=== PATIENT | male | born 1980 | race African-American/Black ===

== ENCOUNTER 2017-05-27 08:10 | Emergency (ER) | payer BC, OTHER ==
[~2017-05-27] VITALS: Ht 182.9 cm; Wt 79.4 kg
[~2017-05-27 08:10] MED LIST: BACTRIM 400-801 EACH PO; DOXYCYCLINE 10100 MG PO; IBUPROFEN 800800 M1 PO; NORCO 5-325 TA1 EACH PO
[2017-05-27] MEDS ORDERED: NAPROSYN500 MG PO (09:13)
[2017-05-27] MEDS ORDERED: FLEXERIL PO (09:13)
[2017-05-27] MEDS ORDERED: MEDROLDOSEPACK PO (09:13)
[2017-05-27 09:21] VITALS: BP 119/68
== END 2017-05-27 09:22 | disposition home or self-care (01) ==
LOC: ER 08:10
DX: M54.16 Radiculopathy, lumbar region (principal)

== ENCOUNTER 2018-06-29 22:53 | Inpatient (IN) | payer OTHER ==
[~2018-06-29] VITALS: Ht 182.9 cm; Wt 81.6 kg
--- NOTE | ~2018-06-29 | 2DMMODE ---
[facility] [email or web address] [place] [address] 2 D/M-MODE ECHOCARDIOGRAM Name: MARIA ELENA ROJAS Room #: 360-P ADM IN M.R.#: [id number] Admission: 06/30/18 Attend Phys: Carroll Acosta MD Discharge: Date of : 84 Date of Service: 06/30/18 1055 Report #: [id number] THIS REPORT FOR: //name// APPROVED REPORT Study performed: 06/30/2018 09:23:50 EXAM: Comprehensive 2D, Doppler, and color-flow Echocardiogram Patient Location: Echo lab Room #: 360 Status: routine BSA: 2.04 HR: 60 bpm BP: 115/77 mmHg Other Information Study Quality: Good Indications Dizziness and Vertigo Bradycardia 2D Dimensions RVDd: 34.20 mm IVSd: 10.76 (7-11mm) LVOT Diam: 23.79 (18-24mm) LVDd: 43.89 mm PWd: 11.29 (7-11mm) Aortic Root: 35.17 mm IVC: 18.00 mm Volumes Left Atrial Volume (Systole) Single Plane 4CH: 48.92 mL Single Plane 2CH: 31.13 mL LA ESV Index: 21.00 mL/m2 Mitral Valve E/A Ratio: 1.2 MV Decel. Time: 195.22 ms MV E Max Laz.: 0.79 m/s MV A Laz.: 0.65 m/s MV PHT: 56.61 ms IVRT: 115.34 ms Pulmonary Valve PV Peak Laz.: 0.89 m/s PV Peak Gr.: 3.19 mmHg [facility] [address] [place] [address] 2 D/M-MODE ECHOCARDIOGRAM Name: MARIA ELENA ROJAS CHANG Room #: 360-P [facility] IN [facility]#: [id number] Admission: 06/30/18 Attend Phys: Carroll Acosta MD Discharge: Date of : 84 Date of Service: 06/30/18 1055 Report #: [id number] Pulmonary Vein P Vein S: 0.46 m/s P Vein A: 0.32 m/s P Vein D: 0.60 m/s P Vein A Dur.: 138.4 msec P Vein S/D Ratio: 0.77 Tricuspid Valve RAP Estimate: 5.00 mmHg Left Ventricle The left ventricle is normal size. There is normal LV segmental wall motion. There is normal left ventricular wall thickness. The left ventricular systolic function is normal. LVEF is 55-60%. The left ventricular diastolic function is normal. Right Ventricle The right ventricle is normal size. The right ventricular systolic function is normal. Atria The left atrium size is normal. The right atrium size is normal. Aortic Valve The aortic valve is normal in structure. No aortic regurgitation is present. There is no aortic valvular stenosis. Mitral Valve The mitral valve is normal in structure. There is no mitral valve regurgitation noted. No evidence of mitral valve stenosis. Tricuspid Valve The tricuspid valve is normal in structure. There is no tricuspid valve regurgitation noted. Unable to assess PA pressure. Pulmonic Valve The pulmonary valve is normal in structure. Trace pulmonic regurgitation. Great Vessels The aortic root is normal in size. The ascending aorta is normal in size. IVC is normal in size and collapses >50% with inspiration. Pericardium There is no pericardial effusion. [facility] [email or web address] [place] [address] 2 D/M-MODE ECHOCARDIOGRAM Name: NAVID ROJASIM [facility] Room #: 360-P ADM IN M.R.#: [id number] Admission: 06/30/18 Attend Phys: Carroll Acosta MD Discharge: Date of : 84 Date of Service: 06/30/18 1055 Report #: [id number] <Conclusion> The left ventricle is normal size. LVEF is 55-60%. The aortic valve is normal in structure. The mitral valve is normal in structure. The tricuspid valve is normal in structure. There is no tricuspid valve regurgitation noted. Unable to assess PA pressure. The pulmonary valve is normal in structure. Trace pulmonic regurgitation. There is no pericardial effusion. <ELECTRONICALLY SIGNED> By: Tay Resendiz MD 06/30/18 1055 54 54 Tay Resendiz MD /INF
--- NOTE | ~2018-06-29 | EKG ---
[address] [place] [address] ELECTROCARDIOGRAM REPORT Name: MARIA ELENA ROJAS CHANG Room #: 360- ADM IN M.R.#: [id number] Admission: 06/30/18 Attend Phys: Carroll Acosta MD Discharge: Date of : 84 Report #: [id number] THIS REPORT FOR: //name// ED Test Date: 2018-06-30 Test Time: 00:07:04 Pat Name: MARIA ELENA ROJAS Department: Room: 360 Gender: M Director Diabetes: ROSIBEL : 1980 Requested By: Jean-Pierre Blood Order Number: [id number] MD: Korey Jorge Measurements Intervals [place] Rate: 53 P: 66 [place]: 213 QRS: 41 QRSD: 100 T: 18 QT: 429 QTc: 403 Interpretive Statements Sinus rhythm ST elev, probable normal early repol pattern Compared to ECG 10/29/2007 15:37:57 No significant change was found Electronically Signed On 06-30-2018 7:33:15 CDT by Korey Jorge [email or web address] <ELECTRONICALLY SIGNED> By: Korey Jorge MD, [facility] 10/07/08 733 Korey Jorge MD, [facility] /EPI
[~2018-06-29 22:53] MED LIST changes: +FLEXERIL PO; +MEDROLDOSEPACK PO; +NAPROSYN500 MG PO
[2018-06-29 23:00] VITALS: BP 119/82
[2018-06-30] VITALS (7 sets, daily range): BP systolic 115–126; BP diastolic 67–81
[2018-06-30 00:27] LABS: ABSOLUTE NEUTROPHILS 2.3 thou/uL (1.4-8.2); BASOPHILS 0.7 % (0.0-2.0); EOSINOPHILS 1.4 % (0.0-3.0); HEMATOCRIT 45.5 % (42.0-52.0); HEMOGLOBIN 16.1 gm/dL (14.0-18.0); LYMPHOCYTES 40.8 % (24.0-44.0); MCH 33.2 pg (26.0-34.0); MCHC 35.4 g/dL (28.0-37.0); MCV 93.8 fL (80.0-100.0); PLATELET COUNT 226 thou/uL (150-400); POLYS 48.1 % (36.0-66.0); RBC 4.84 mil/uL (4.50-6.00); WBC 4.9 thou/uL (4.0-11.0)
[2018-06-30 00:36] LABS: ANION GAP 8 mmol/L (7-16); BUN 11 mg/dL (7-18); CALCIUM 9.2 mg/dL (8.5-10.1); CHLORIDE 102 mmol/L (98-107); CO2 29 mmol/L (21-32); CREATININE 1.1 mg/dL (0.7-1.3); GLUCOSE 112 mg/dL (74-106); SODIUM 139 mmol/L (136-145)
[2018-06-30 00:45] LABS: ALBUMIN 4.2 g/dL (3.4-5.0); MAGNESIUM 1.9 mg/dL (1.8-2.4); SGOT 26 U/L (15-37); SGPT 46 U/L (30-65); TOTAL BILIRUBIN 0.9 mg/dL (<0.1-1.0); TROPONIN-I <0.06 ng/mL (<0.06)
[2018-06-30 11:42] LABS: URINE BILIRUBIN NEGATIVE (Negative); URINE BLOOD NEGATIVE (Negative); URINE CLARITY CLEAR; URINE COLOR YELLOW; URINE GLUCOSE-RANDOM* NEGATIVE (Negative); URINE KETONES NEGATIVE (Negative); URINE LEUKOCYTES NEGATIVE (Negative); URINE NITRITE NEGATIVE (Negative); URINE PROTEIN (DIPSTICK) NEGATIVE (Negative); URINE SPECIFIC GRAVITY 1.015 (1.005-1.035); URINE UROBILINOGEN 0.2 E.U./dl (0.2-1.0)
== END 2018-06-30 13:44 | disposition home or self-care (01) | DRG 310 ==
LOC: ER 22:53 → 3W 06-30 01:08 → EROBS 06-30 01:08 → 3W 06-30 01:20
PROVIDERS: Emergency Medicine; Nurse Practitioner Family
DX: R00.1 Bradycardia, unspecified (principal); I10 Essential (primary) hypertension; Z83.3 Family history of diabetes mellitus; Z79.899 Other long term (current) drug therapy; Z82.49 Family history of ischemic heart disease and other diseases of the circulatory system
CPT/HCPCS: 10879

== ENCOUNTER 2018-11-17 07:07 | Emergency (ER) | payer OTHER ==
[~2018-11-17] VITALS: Ht 182.9 cm; Wt 85.3 kg
[2018-11-17] MEDS ORDERED: IBUPROFEN 400400 M2 PO (07:53)
[2018-11-17 08:05] VITALS: BP 115/68
== END 2018-11-17 08:10 | disposition home or self-care (01) ==
LOC: ER 07:07
DX: M53.3 Sacrococcygeal disorders, not elsewhere classified (principal)

== ENCOUNTER 2020-10-18 18:43 | Emergency (ER) | payer OTHER ==
[~2020-10-18] VITALS: Ht 182.9 cm; Wt 81.7 kg
[~2020-10-18 18:43] MED LIST changes: +IBUPROFEN 400400 M2 PO
[2020-10-18 19:28] LABS: ABSOLUTE NEUTROPHILS 2.2 thou/uL (1.4-8.2); BASOPHILS 0.6 % (0.0-2.0); EOSINOPHILS 1.7 % (0.0-3.0); HEMATOCRIT 43.1 % (42.0-52.0); HEMOGLOBIN 14.8 gm/dL (14.0-18.0); LYMPHOCYTES 47.8 % (24.0-44.0); MCH 32.5 pg (26.0-34.0); MCHC 34.3 g/dL (28.0-37.0); MCV 94.9 fL (80.0-100.0); MONOCYTES 6.3 % (1.0-8.0); PLATELET COUNT 254 thou/uL (150-400); POLYS 43.6 % (36.0-66.0); RBC 4.54 mil/uL (4.50-6.00); RDW 13.2 % (10.5-14.5); WBC 5.1 thou/uL (4.0-11.0)
[2020-10-18 19:29] LABS: URINE BILIRUBIN NEGATIVE (Negative); URINE BLOOD NEGATIVE (Negative); URINE CLARITY CLEAR; URINE COLOR YELLOW; URINE GLUCOSE-RANDOM* NEGATIVE (Negative); URINE KETONES NEGATIVE (Negative); URINE LEUKOCYTES-REFLEX NEGATIVE (Negative); URINE NITRITE-REFLEX NEGATIVE (Negative); URINE PROTEIN (DIPSTICK) NEGATIVE (Negative); URINE UROBILINOGEN 0.2 E.U./dl (0.2-1.0)
[2020-10-18 19:54] LABS: CALCIUM 9.2 mg/dL (8.5-10.1); CREATININE 1.2 mg/dL (0.7-1.3); POTASSIUM 4.2 mmol/L (3.5-5.1)
[2020-10-18 19:59] LABS: ALBUMIN 4.3 g/dL (3.4-5.0); TOTAL BILIRUBIN 0.6 mg/dL (0.2-1.0); TOTAL PROTEIN 7.8 g/dL (6.4-8.2)
[2020-10-18 20:07] LABS: AMP/METHAMP Negative (Negative); BARBITURATES Negative (Negative); BENZODIAZEPINES Negative (Negative); COCAINE Negative (Negative); METHADONE Negative (Negative); OPIATES Negative (Negative); PCP Negative (Negative)
[2020-10-18 20:35] VITALS: BP 146/86
== END 2020-10-18 20:35 | disposition home or self-care (01) ==
LOC: ER 18:43
PROVIDERS: Physician Assistant
DX: M54.5 Low back pain (principal); R09.1 Pleurisy; Z79.899 Other long term (current) drug therapy

== ENCOUNTER 2021-07-29 13:58 | Emergency (ER) | payer OTHER ==
[~2021-07-29] VITALS: Ht 182.9 cm; Wt 79.4 kg
[2021-07-29 14:37] LABS: ABSOLUTE NEUTROPHILS 1.4 thou/uL (1.4-8.2); EOSINOPHILS 1.3 % (0.0-3.0); HEMATOCRIT 40.1 % (42.0-52.0); HEMOGLOBIN 13.9 gm/dL (14.0-18.0); LYMPHOCYTES 53.8 % (24.0-44.0); MCH 32.8 pg (26.0-34.0); MCHC 34.6 g/dL (28.0-37.0); MONOCYTES 8.2 % (1.0-8.0); PLATELET COUNT 220 thou/uL (150-400); POLYS 35.7 % (36.0-66.0); RBC 4.22 mil/uL (4.50-6.00); WBC 3.9 thou/uL (4.0-11.0)
[2021-07-29 14:49] LABS: ANION GAP 6 mmol/L (7-16); CALCIUM 8.5 mg/dL (8.5-10.1); CHLORIDE 104 mmol/L (98-107); CO2 30 mmol/L (21-32); CREATININE 1.3 mg/dL (0.7-1.3); GLUCOSE 106 mg/dL (74-106); POTASSIUM 3.8 mmol/L (3.5-5.1); SODIUM 140 mmol/L (136-145)
[2021-07-29 14:51] LABS: BUN 15 mg/dL (7-18)
[2021-07-29] MEDS ORDERED: NAPROSYN500 MG PO (14:53)
[2021-07-29] MEDS ORDERED: FLEXERIL PO (14:53)
[2021-07-29 15:09] VITALS: BP 124/79
--- NOTE | 2021-07-30 07:25 | EKG ---
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 : 1980 Requested By: Bertrand Slade Order Number: [id number] MD: Curtis Acevedo Measurements Intervals [place] Rate: 58 P: 51 [place]: 199 QRS: 49 QRSD: 92 T: 27 QT: 395 QTc: 388 Interpretive Statements Sinus rhythm ST elev, probable normal early repol pattern Compared to ECG 06/30/2018 00:07:04 No significant changes Electronically Signed On 07-30-2021 7:25:05 [employer] by Curtis Acevedo [email or web address] <ELECTRONICALLY SIGNED> By: Curtis Acevedo MD, [facility] 07/30/21 0725 1405 1405 Curtis Acevedo MD, FACC /EPI
== END 2021-07-29 15:10 | disposition home or self-care (01) ==
LOC: ER 13:58
PROVIDERS: Emergency Medicine
DX: R07.89 Other chest pain (principal)